=== PATIENT | female | born 1995 | race Caucasian/White ===

== ENCOUNTER 2019-03-07 21:23 | Observation (INO) | payer MEDICAID, OTHER ==
[~2019-03-07] VITALS: Ht 157.5 cm; Wt 88.5 kg
[2019-03-07 22:53] LABS: BILIRUBIN,URINE NEGATIVE (NEGATIVE); BLOOD, URINE NEGATIVE (NEGATIVE); COLOR,URINE YELLOW (YELLOW); GLUCOSE,URINE NEGATIVE (NEGATIVE); KETONES,URINE TRACE (NEGATIVE); LEUKOCYTE ESTERASE ,URINE 1+ (NEGATIVE); NITRITE, URINE NEGATIVE (NEGATIVE); PROTEIN URINE TRACE (NEGATIVE); UROBILINOGEN,URINE 0.2 (0.2-1.0)
[2019-03-07 22:58] LABS: BASOPHILS % (AUTO) 0.4 % (0.0-2.0); EOSINOPHILS # (AUTO) 0.1 K/uL (0.0-0.4); HEMATOCRIT 34.5 % (36-48); HEMOGLOBIN 11.5 g/dL (12.0-16.0); LYMPHOCYTES # (AUTO) 2.6 K/uL (1.0-5.5); LYMPHOCYTES % (AUTO) 24.7 % (20.5-51.5); MEAN CORPUSCULAR HEMOGLOBIN 30 pg (27-31); MEAN CORPUSCULAR HGB CONC 33 % (32-36); MEAN CORPUSCULAR VOLUME 90 fL (79.0-98.0); MONOCYTES # (AUTO) 0.6 K/uL (0.0-1.0); MONOCYTES % (AUTO) 5.8 % (1.7-9.3); NEUTROPHILS % (AUTO) 68.1 % (40.0-70.0); PLATELET COUNT (AUTO) 348 K/uL (130-430); RED BLOOD CELL COUNT(AUTO) 3.85 MIL/uL (4.2-6.2); RED CELL DISTRIBUTION WIDTH 14.2 % (9.0-15.0); WHITE BLOOD COUNT (AUTO) 10.4 K/uL (4.8-10.8)
[2019-03-07 23:01] LABS: CLARITY/URINE HAZY (CLEAR)
[2019-03-07 23:02] LABS: BACTERIA,URINE MODERATE /HPF (None Seen); MUCUS,URINE None Seen /LPF (None Seen); RBC,URINE NONE SEEN /HPF (0-3)
== END 2019-03-07 23:10 | disposition home or self-care (01) ==
LOC: SPU 21:23 → INTOOBSV 21:23
PROVIDERS: ADMIT Obstetrics & Gynecology; ATTEND Obstetrics & Gynecology
DX: O62.9 Abnormality of forces of labor, unspecified (principal); O34.219 Maternal care for unspecified type scar from previous cesarean delivery; Z3A.39 39 weeks gestation of pregnancy
CPT/HCPCS: 36415; 81000; 85025; 86592; 86886; 86900; 86901; 87086; G0378

== ENCOUNTER 2019-03-08 02:40 | Inpatient (IN) | payer OTHER ==
[~2019-03-08] VITALS: Ht 157.5 cm; Wt 88.5 kg
[2019-03-08] MEDS ORDERED: LR 1,000 ML IV SCH (06:30)
[2019-03-08] MEDS ORDERED: CEFAZOLIN 2 GM IVPB PREMIX 50 ML IV ONE (06:30)
[2019-03-08] MEDS ORDERED: NS IRRIG SOLN 1000 ML IR ONE (07:25)
[2019-03-08] MEDS ORDERED: MORPHINE SULFATE 10MG/10ML PF AMP EP ONE (07:25)
[2019-03-08] MEDS ORDERED: LR 1,000 ML IV.SOLN IV ONE (07:25)
[2019-03-08] MEDS ORDERED: ONDANSETRON HCL 4 MG/2 ML VIAL IVP ONE (07:25)
[2019-03-08] MEDS ORDERED: BUPIVACAINE /PF 0.75% 10 ML VIAL INJ ONE (07:25)
[2019-03-08] MEDS ORDERED: NALBUPHINE HCL 10 MG/ML AMP IVP PRN (08:00)
[2019-03-08] MEDS ORDERED: NALOXONE HCL 0.4 MG/ML AMP (NARCAN) IVP PRN ×2 (08:00)
[2019-03-08] MEDS ORDERED: ONDANSETRON HCL 4 MG/2 ML VIAL IVP PRN (08:00)
[2019-03-08] MEDS ORDERED: MORPHINE SULFATE 10MG/10ML PF AMP SP SCH (08:00)
[2019-03-08] MEDS ORDERED: DIPHENHYDRAMINE INJ 50 MG/ML VIAL IVP PRN (08:00)
[2019-03-08] MEDS ORDERED: fentaNYL CITRATE/PF 100 MCG/2 ML AMP IVP PRN ×2 (08:00)
[2019-03-08] MEDS ORDERED: KETOROLAC TROMETHAMINE 60 MG/2 ML VIAL IM PRN (08:00)
[2019-03-08 08:47] VITALS: BP_SYST 138
[2019-03-08] MEDS ORDERED: SIMETHICONE 80 MG TAB.CHEW PO PRN (09:15)
[2019-03-08] MEDS ORDERED: DOCUSATE SODIUM 100 MG CAPSULE PO PRN (09:15)
[2019-03-08] MEDS ORDERED: OXYTOCIN/0.9 % SODIUM CHLORIDE 1,000 ML IV ONE ×2 (13:39→13:46)
[2019-03-08] MEDS: CEFAZOLIN 1 GM IVPB PREMIX 50 ML IV SCH ×2 (17:55→22:53)
[2019-03-09] MEDS ORDERED: OXYCODONE/ACETAMINOPHEN 5-325 TABLET PO PRN ×2 (02:00)
[2019-03-09] MEDS: IBUPROFEN 600 MG TABLET PO SCH ×3 (06:54→18:45)
[2019-03-09 08:49] LABS: BASOPHILS % (AUTO) 0.3 % (0.0-2.0); EOSINOPHILS # (AUTO) 0.1 K/uL (0.0-0.4); EOSINOPHILS % (AUTO) 1.4 % (0.0-4.0); HEMATOCRIT 27.2 % (36-48); HEMOGLOBIN 9.2 g/dL (12.0-16.0); LYMPHOCYTES % (AUTO) 20.1 % (20.5-51.5); MEAN CORPUSCULAR HEMOGLOBIN 30 pg (27-31); MEAN CORPUSCULAR HGB CONC 34 % (32-36); MEAN CORPUSCULAR VOLUME 90 fL (79.0-98.0); MONOCYTES # (AUTO) 0.7 K/uL (0.0-1.0); MONOCYTES % (AUTO) 6.9 % (1.7-9.3); NEUTROPHILS # (AUTO) 6.9 K/uL (1.8-7.7); NEUTROPHILS % (AUTO) 71.3 % (40.0-70.0); PLATELET COUNT (AUTO) 274 K/uL (130-430); RED BLOOD CELL COUNT(AUTO) 3.04 MIL/uL (4.2-6.2); RED CELL DISTRIBUTION WIDTH 14.5 % (9.0-15.0); WHITE BLOOD COUNT (AUTO) 9.7 K/uL (4.8-10.8)
[2019-03-10] MEDS: IBUPROFEN 600 MG TABLET PO SCH ×2 (00:06→05:51)
== END 2019-03-10 12:45 | disposition home or self-care (01) | DRG 540 ==
LOC: SPU 06:07
PROVIDERS: ADMIT Obstetrics & Gynecology; ATTEND Obstetrics & Gynecology
PROC: 10D00Z1 Extraction of Products of Conception, Low, Open Approach (ICD-10-PCS; principal; 2019-03-08 07:30)
DX: O65.5 Obstructed labor due to abnormality of maternal pelvic organs (principal); R71.0 Precipitous drop in hematocrit; O34.211 Maternal care for low transverse scar from previous cesarean delivery; Z37.0 Single live birth; Z3A.39 39 weeks gestation of pregnancy
CPT/HCPCS: 36415; 59025; 85025; 94760; J0690; J1885; J2274; J2405; J2590; J3490; J7120